=== PATIENT | male | born 1935 | race Caucasian/White ===

== ENCOUNTER 2017-05-01 11:11 | Day surgery (SDC) | payer OTHER ==
[2017-05-01] MEDS ORDERED: NS 1,000 ML IV ONE (11:17)
[2017-05-01] MEDS ORDERED: FAMOTIDINE 20 MG TAB PO ONE (11:17)
[2017-05-01] MEDS ORDERED: diphenhydrAMINE 25 MG CAP PO ONE ×2 (11:17→11:50)
[2017-05-01] MEDS ORDERED: DIAZEPAM 5 MG TAB PO ONE (11:17)
[2017-05-01] MEDS ORDERED: ASPIRIN EC 325 MG TAB PO ONE ×2 (11:17→11:50)
--- NOTE | 2017-05-01 11:36 | CPEKG ---
Heart Rate: 60 RR Interval: 1000 P-R Interval: 248 QRSD Interval: 104 QT Interval: 436 QTC Interval: 436 P [place]: 70 QRS [place]: 65 T Wave [place]: 140 EKG Severity - ABNORMAL ECG - EKG Impression: SINUS RHYTHM EKG Impression: FIRST DEGREE AV BLOCK EKG Impression: PROBABLE LEFT ATRIAL ABNORMALITY EKG Impression: LVH WITH SECONDARY REPOLARIZATION ABNORMALITY Electronically Signed By: David Holden 01-May-2017 13:13:02
--- NOTE | 2017-05-01 11:40 | PDHPUP ---
History & Physical Update H&P update statement: This history and physical update is based on an assessment of the patient which was completed after admission or registration (within 24 hours), but prior to the surgery/procedure. H&P update: H&P reviewed & patient examined, no change in patient's condition since H&P completed
--- NOTE | 2017-05-01 11:40 | PDPROPOC ---
Sedation Plan of Care Sedation Plan of Care: vital signs stable, mental status noted, patient educated of risks, benefits, alternatives, patient can tolerate sedation ASA Classification: ASA 2 Planned drugs: fentanyl, midazolam Mallampati Score: Class 1 Mallampati Reference Image: Patient passed 3-3-2 rule?: Yes
[2017-05-01] MEDS ORDERED: DIAZEPAM 5 MG TAB ONE (11:50)
[2017-05-01] MEDS ORDERED: FAMOTIDINE 20 MG TAB ONE (11:50)
[2017-05-01 11:55] LABS: PLATELET COUNT 186 10^3/uL (150-400)
[2017-05-01 12:04] LABS: INR 1.03 (0.83-1.16); PROTIME(PATIENT) 13.7 SEC (12.0-15.0)
[2017-05-01] MEDS ORDERED: IOPAMIDOL (ISOVUE-370) 150 ML BTL IV ONE (13:02)
== END 2017-05-01 16:00 | disposition home or self-care (01) ==
LOC: FCATH 11:11
PROVIDERS: ATTEND Internal Medicine Interventional Cardiology
PROC: B2151ZZ Fluoroscopy of Left Heart using Low Osmolar Contrast (ICD-10-PCS; principal; 2017-05-01)
PROC: B2111ZZ Fluoroscopy of Multiple Coronary Arteries using Low Osmolar Contrast (ICD-10-PCS; principal; 2017-05-01)
PROC: 4A023N7 Measurement of Cardiac Sampling and Pressure, Left Heart, Percutaneous Approach (ICD-10-PCS; principal; 2017-05-01)
PROC: B21F1ZZ Fluoroscopy of Other Bypass Graft using Low Osmolar Contrast (ICD-10-PCS; principal; 2017-05-01)
PROC: B2180ZZ Fluoroscopy of Left Internal Mammary Bypass Graft using High Osmolar Contrast (ICD-10-PCS; principal; 2017-05-01)
DX: R94.39 Abnormal result of other cardiovascular function study (principal); I25.10 Atherosclerotic heart disease of native coronary artery without angina pectoris; Z95.1 Presence of aortocoronary bypass graft; K21.9 Gastro-esophageal reflux disease without esophagitis; E03.9 Hypothyroidism, unspecified; J44.9 Chronic obstructive pulmonary disease, unspecified; E11.9 Type 2 diabetes mellitus without complications; I10 Essential (primary) hypertension; Z85.46 Personal history of malignant neoplasm of prostate
CPT/HCPCS: 93005; 93459; C1769; Q9967

== ENCOUNTER → 2018-08-24 | Outpatient (CLI) | payer OTHER, MEDICARE | LOC: CIMAGING 15:59 | PROVIDERS: ATTEND Family Medicine | DX: R04.2 Hemoptysis (principal) | CPT/HCPCS: 71046-PO ==

== ENCOUNTER → 2018-09-19 | Outpatient (CLI) | payer OTHER, MEDICARE | LOC: CIMAGING 10:16 | PROVIDERS: ATTEND Internal Medicine Pulmonary Disease | DX: R91.8 Other nonspecific abnormal finding of lung field (principal); R04.2 Hemoptysis; J43.9 Emphysema, unspecified; J90 Pleural effusion, not elsewhere classified; I25.10 Atherosclerotic heart disease of native coronary artery without angina pectoris; G47.34 Idiopathic sleep related nonobstructive alveolar hypoventilation; Z95.5 Presence of coronary angioplasty implant and graft | CPT/HCPCS: 71250-PO ==

== ENCOUNTER 2018-10-20 12:39 | Day surgery (SDC) | payer OTHER, MEDICARE | END 2018-10-20 15:54 | disposition home or self-care (01) | LOC: FSGY 12:39 ==